=== PATIENT | female | born 2005 | race Caucasian/White ===

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

== ENCOUNTER 2025-02-06 17:03 | Outpatient (CLI) | payer OTHER, SELFPAY ==
[2025-02-07 08:50] LABS: HBs Antibody, Quant <3.1 mIU/mL (See Note); Hepatitis B Surface Ab Negative (See Note)
[2025-02-07 10:21] LABS: Hep B Core Antibody Negative (Negative)
[2025-02-08 20:31] LABS: Hepatitis Be Antigen Negative (Negative)
== END 2025-02-06 17:04 | disposition home or self-care (01) ==
LOC: LBO 17:05
PROVIDERS: PCP Nurse Practitioner Family; Visit Provider Nurse Practitioner Family
DX: Z02.1 Encounter for pre-employment examination (principal)
CPT/HCPCS: 36415; 86704; 86706; 87350

== ENCOUNTER 2025-03-22 09:51 | Outpatient (CLI) | payer OTHER, SELFPAY ==
[2025-03-25 10:05] LABS: Measles IgG Antibody Positive (See Note); Mumps Antibody IgG Positive (See Note); Rubella IgG Ab (UVM) Positive (See Note)
[2025-03-25 10:08] LABS: Varicella IgG Antibody Positive (See Note)
== END 2025-03-22 09:52 | disposition home or self-care (01) ==
LOC: LBO 09:52
PROVIDERS: PCP Nurse Practitioner Family; Visit Provider Nurse Practitioner Family
DX: Z02.1 Encounter for pre-employment examination (principal)
CPT/HCPCS: 36415; 86787; 86735; 86762; 86765